=== PATIENT | female | born 1965 | race African-American/Black ===

== ENCOUNTER 2017-06-29 13:42 | Emergency (ER) | payer MEDICAID, OTHER ==
[~2017-06-29] VITALS: Ht 172.7 cm; Wt 66.0 kg
[2017-06-29 13:44] VITALS: BP 108/71
[2017-06-29] MEDS ORDERED: KETOROLAC 30 MG/1 ML ONE (14:29)
[2017-06-29] MEDS ORDERED: KETOROLAC 30 MG/1 ML IM ONE (14:30)
[2017-06-29 14:32] LABS: PATH.CAST-FLAG NOT PRESENT; SPERM-FLAG NOT PRESENT; SRC-FLAG NOT PRESENT; XTAL-FLAG NOT PRESENT; YLC-FLAG NOT PRESENT
== END 2017-06-29 15:57 | disposition home or self-care (01) ==
LOC: ED 15:25
DX: M54.5 Low back pain (principal); G89.29 Other chronic pain
CPT/HCPCS: 72110; 81001; 87086; 96372; 99285; J1885

== ENCOUNTER 2020-03-29 15:35 | Emergency (ER) | payer MEDICAID ==
[~2020-03-29] VITALS: Ht 172.7 cm; Wt 56.7 kg
[2020-03-29 15:38] VITALS: BP 102/60
--- NOTE | 2020-03-29 16:54 | NUR ---
AQUARIST: PT TO ROOM FROM LOBBY
--- NOTE | 2020-03-29 17:43 | NUR ---
Patient given discharge instructions and Rx, they have confirmed that they understand the instructions. Patient ambulatory with steady gait.
== END 2020-03-29 17:44 | disposition home or self-care (01) ==
LOC: ED 17:20
DX: K08.89 Other specified disorders of teeth and supporting structures (principal); G89.29 Other chronic pain; Z90.89 Acquired absence of other organs
CPT/HCPCS: 99283

== ENCOUNTER 2020-04-23 15:05 | Inpatient (IN) | payer MEDICAID ==
[~2020-04-23] VITALS: Ht 172.7 cm; Wt 52.5 kg
--- NOTE | 2020-04-23 15:21 | NUR ---
PT AMB TO BR WITH STEADY GAIT. URINE CUP GIVEN AT THIS TIME.
--- NOTE | 2020-04-23 15:34 | NUR ---
FIRST CONTACT WITH PT. PT CAME IN CO OF FEELING "TIRED ALL THE TIME". PT REPORTS SHE HAS HYPOTHYROIDISM. PT ALSO REPORTS FREQUENT URINATION. PT'S AOX4. RESPS EVEN AND UNLABORED. DENIES ANY PAIN. BP/SPO2 MONITORS IN PLACE. CALL LIGHT WITHIN REACH. PA AT BEDSIDE TO EVALUATE AT THIS TIME.
--- NOTE | 2020-04-23 15:38 | NUR ---
URINE COLLECTED AND UA SENT.
[2020-04-23 15:53] LABS: MICROSCOPIC NOT IND
--- NOTE | 2020-04-23 16:06 | NUR ---
EKG DONE AT BEDSIDE BY EMS.
[2020-04-23 16:08] LABS: MEAN CORPUSCULAR HEMOGLOBIN 29.2 pg (27.0-34.8); MEAN CORPUSCULAR HGB CONC 31.9 g/dL (32.4-35.8); MEAN CORPUSCULAR VOLUME 91.7 fL (80-100); MEAN PLATELET VOLUME 11.1 fL (7.4-10.4); PLATELET COUNT 185 x10^3/uL (130-400); RED BLOOD COUNT 4.45 x10^6/uL (3.82-5.3); RED CELL DISTRIBUTION WIDTH 13.1 % (9.6-15.2)
--- NOTE | 2020-04-23 16:08 | NUR ---
PT AMB TO BR WITH STEADY GAIT.
[2020-04-23 16:11] LABS: ALANINE AMINOTRANSFERASE 30 U/L (12-78); ALBUMIN 4.1 g/dL (3.4-5.0); ANION GAP 14 mmol/L (5-15); CHLORIDE 89 mmol/L (98-107); CREATININE 1.36 mg/dL (0.55-1.02)
[2020-04-23 16:20] LABS: ALKALINE PHOSPHATASE 343 U/L (45-117); BILIRUBIN,TOTAL 0.5 mg/dL (0.2-1.0); TOTAL PROTEIN 7.9 g/dL (6.4-8.2)
[2020-04-23] MEDS ORDERED: SODIUM CHLORIDE FLUSH 10ML SYR IVF ONE (16:30)
[2020-04-23] MEDS ORDERED: SODIUM CHLORIDE 0.9% 1,000ML IVBOLUS ONE (16:30)
[2020-04-23] MEDS ORDERED: METH5TAB6 PO (16:32)
[2020-04-23] MEDS ORDERED: OXYC-432 PO (16:32)
[2020-04-23] MEDS ORDERED: PREG75CA PO (16:33)
[2020-04-23] MEDS ORDERED: MELO15TA24 PO (16:33)
[2020-04-23] MEDS ORDERED: MONT10TA11 PO (16:33)
[2020-04-23 16:34] LABS: MD YES
[2020-04-23] MEDS ORDERED: VITAMIN B12 (16:34)
[2020-04-23 16:36] LABS: <RBC MORPHOLOGY> NORMAL; BASOS% (MANUAL) 1 % (0-1); LYMPH#(MANUAL) 1.71 x10^3/uL (1-3.4); LYMPHS% (MANUAL) 18 % (22-44); MONOS#(MANUAL) 0.29 x10^3/uL (0.3-2.7); MONOS% (MANUAL) 3 % (2-9); SEG#(MANUAL) 7.41 x10^3/uL (1.8-6.8); SEGS% (MANUAL) 78 % (42-75)
--- NOTE | 2020-04-23 16:36 | NUR ---
PIV EST ON R AC WITH NO COMPLICATIONS. NS INFUSING AT THIS TIME. PT TOLERATED WELL.
[2020-04-23 16:38] LABS: <PLATELET ESTIMATE> ADEQUATE
[2020-04-23 16:39] LABS: <PLT MORPHOLOGY> NORMAL PLT MORPH
[2020-04-23 16:41] LABS: FREE T4 (FREE THYROXINE) 1.98 ng/dL (0.76-1.46)
[2020-04-23 16:49] LABS: PH, VENOUS 7.356 pH (7.320-7.420)
--- NOTE | 2020-04-23 17:06 | NUR ---
pt amb to br with steady gait.
[2020-04-23 17:16] LABS: ACETONE, SERUM Large (80mg/dL) (Negative)
--- NOTE | 2020-04-23 17:48 | NUR ---
PT RESTING IN [facility]. PT'S AOX4. RESPS EVEN AND UNLABORED. ALL MONITORS IN PLACE. CALL LIGHT WITHIN REACH.
--- NOTE | 2020-04-23 18:25 | NUR ---
PT AMB TO BR WITH STEADY GAIT AT THIS TIME.
[2020-04-23] MEDS ORDERED: ENALAPRILAT 1.25 MG/ML, 2ML IVPush PRN (18:30)
[2020-04-23] MEDS ORDERED: DIPHENHYDRAMINE 25 MG CAPSULE PO PRN (18:30)
[2020-04-23] MEDS ORDERED: ONDANSETRON 2MG/ML, 2ML IVPush PRN (18:30)
[2020-04-23] MEDS ORDERED: ONDANSETRON ODT 4 MG PO PRN (18:30)
[2020-04-23] MEDS ORDERED: LABETALOL 5MG/ML, 20ML IVPush PRN (18:30)
[2020-04-23] MEDS ORDERED: DOCUSATE 100 MG CAPSULE PO PRN (18:30)
[2020-04-23] MEDS ORDERED: ACETAMINOPHEN 325 MG TABLET PO PRN (18:30)
[2020-04-23] MEDS ORDERED: DEXTROSE 4 GM TAB.CHEW PO PRN (19:00)
[2020-04-23] MEDS ORDERED: GLUCAGON 1 MG IM PRN (19:00)
[2020-04-23] MEDS ORDERED: DEXTROSE 50%, 50ML SYRINGE IVPush PRN (19:00)
--- NOTE | 2020-04-23 19:05 | NUR ---
asumed care of pt. pt here for weakness and has been found to have N/O DM. Iv fluids infusing. pt sitting up on gurney in no apparent distress. testing on cell phone. calm, and cooperative. no c/o at this time. pt to be admitted. awaiting admit orders. no family at bedside
--- NOTE | 2020-04-23 19:08 | NUR ---
REPORT GIVEN TO SHANITA GALEAS.
--- NOTE | 2020-04-23 19:20 | NUR ---
pt ambualted to BR without difficulty.
--- NOTE | 2020-04-23 20:19 | NUR ---
bed assignment recieved. report called to Brooks GALEAS. pt to have repeat FSBS upon arrival to inpatient unit per recieving ADAL.
--- NOTE | 2020-04-23 20:41 | NUR ---
pt transferred to floor
[2020-04-23] MEDS: LACTATED RINGERS 1,000 ML IV SCH ×2 (20:58→23:30)
[2020-04-23] MEDS: SODIUM CHLORIDE FLUSH 10ML SYR IVF SCH (20:58)
[2020-04-23] MEDS ORDERED: INSULIN GLARGINE 100 UNITS/ML, PEN SQ-INSULIN SCH (21:00)
[2020-04-23 21:59] LABS: ANION GAP 10 mmol/L (5-15); CALCIUM 9.3 mg/dL (8.5-10.1); CHLORIDE 105 mmol/L (98-107); CREATININE 0.73 mg/dL (0.55-1.02)
[2020-04-23] MEDS: MELOXICAM 15 MG TABLET PO SCH (22:10)
[2020-04-23] MEDS: FAMOTIDINE 20 MG TABLET PO SCH (22:10)
[2020-04-23] MEDS: PREGABALIN 75 MG CAPSULE PO SCH (22:10)
[2020-04-23] MEDS: INSULIN LISPRO 100 UNITS/ML, PEN SQ-INSULIN SCH (22:12)
[2020-04-24 01:12] VITALS: BP 132/86
[2020-04-24] MEDS: LACTATED RINGERS 1,000 ML IV SCH ×3 (04:30→17:25)
[2020-04-24] MEDS: INSULIN LISPRO 100 UNITS/ML, PEN SQ-INSULIN SCH ×4 (06:03→20:44)
[2020-04-24 06:42] VITALS: BP 114/74
[2020-04-24 06:50] LABS: BASOPHILS # (AUTO) 0.04 x10^3/uL (0-0.1); BASOPHILS % (AUTO) 1 % (0-1); EOSINOPHILS # (AUTO) 0.75 x10^3/uL (0-0.4); EOSINOPHILS % (AUTO) 10 % (1-7); LYMPHOCYTES % (AUTO) 45 % (22-44); MD NO; MEAN CORPUSCULAR HEMOGLOBIN 29.2 pg (27.0-34.8); MEAN CORPUSCULAR HGB CONC 32.3 g/dL (32.4-35.8); MEAN CORPUSCULAR VOLUME 90.4 fL (80-100); MEAN PLATELET VOLUME 10.7 fL (7.4-10.4); MONOCYTES # (AUTO) 0.52 x10^3/uL (0.2-0.8); MONOCYTES % (AUTO) 7 % (2-9); NEUTROPHILS # (AUTO) 2.81 x10^3/uL (1.8-6.8); NEUTROPHILS % (AUTO) 37 % (42-75); PLATELET COUNT 146 x10^3/uL (130-400); RED BLOOD COUNT 3.85 x10^6/uL (3.82-5.3); RED CELL DISTRIBUTION WIDTH 13.7 % (9.6-15.2)
[2020-04-24 06:53] LABS: ANION GAP 7 mmol/L (5-15); CALCIUM 9.4 mg/dL (8.5-10.1); CHLORIDE 106 mmol/L (98-107); CREATININE 0.57 mg/dL (0.55-1.02)
[2020-04-24] MEDS: FAMOTIDINE 20 MG TABLET PO SCH ×2 (08:28→20:46)
[2020-04-24] MEDS: MONTELUKAST 10 MG TABLET PO SCH (08:28)
[2020-04-24] MEDS: PREGABALIN 75 MG CAPSULE PO SCH ×2 (08:28→20:46)
[2020-04-24] MEDS: METHIMAZOLE 5 MG TAB PO SCH (08:28)
[2020-04-24] MEDS: SENNA/DOCUSATE TABLET PO SCH (08:31)
[2020-04-24] MEDS: SODIUM CHLORIDE FLUSH 10ML SYR IVF SCH ×2 (08:31→20:46)
[2020-04-24 11:34] LABS: ANION GAP 6 mmol/L (5-15); CALCIUM 8.8 mg/dL (8.5-10.1); CHLORIDE 106 mmol/L (98-107); CREATININE 0.54 mg/dL (0.55-1.02)
[2020-04-24] MEDS: OXYcodone/APAP 10/325MG TABLET PO PRN (11:46)
[2020-04-24 12:24] VITALS: BP 123/78
[2020-04-24 16:15] LABS: ANION GAP 5 mmol/L (5-15); CALCIUM 9.2 mg/dL (8.5-10.1); CHLORIDE 107 mmol/L (98-107); CREATININE 0.65 mg/dL (0.55-1.02)
[2020-04-24 19:44] VITALS: BP 144/93
[2020-04-24] MEDS: MELOXICAM 15 MG TABLET PO SCH (20:46)
[2020-04-24] MEDS ORDERED: INSULIN GLARGINE 100 UNITS/ML, PEN SQ-INSULIN SCH (21:00)
[2020-04-24 22:44] LABS: ANION GAP 7 mmol/L (5-15); CALCIUM 9.3 mg/dL (8.5-10.1); CHLORIDE 105 mmol/L (98-107); CREATININE 0.68 mg/dL (0.55-1.02)
[2020-04-25 01:48] VITALS: BP 137/86
[2020-04-25] MEDS: LACTATED RINGERS 1,000 ML IV SCH ×3 (03:37→22:03)
[2020-04-25 06:17] LABS: CHLORIDE 110 mmol/L (98-107)
[2020-04-25 06:22] VITALS: BP 104/69
[2020-04-25 06:25] LABS: ANION GAP 3 mmol/L (5-15); BASOPHILS # (AUTO) 0.04 x10^3/uL (0-0.1); BASOPHILS % (AUTO) 1 % (0-1); CALCIUM 9.4 mg/dL (8.5-10.1); EOSINOPHILS # (AUTO) 0.63 x10^3/uL (0-0.4); EOSINOPHILS % (AUTO) 10 % (1-7); LYMPHOCYTES # (AUTO) 2.37 x10^3/uL (1-3.4); LYMPHOCYTES % (AUTO) 36 % (22-44); MD NO; MEAN CORPUSCULAR HEMOGLOBIN 29.8 pg (27.0-34.8); MEAN CORPUSCULAR HGB CONC 32.8 g/dL (32.4-35.8); MEAN CORPUSCULAR VOLUME 90.8 fL (80-100); MEAN PLATELET VOLUME 10.7 fL (7.4-10.4); MONOCYTES # (AUTO) 0.48 x10^3/uL (0.2-0.8); MONOCYTES % (AUTO) 7 % (2-9); NEUTROPHILS # (AUTO) 2.99 x10^3/uL (1.8-6.8); NEUTROPHILS % (AUTO) 46 % (42-75); PLATELET COUNT 138 x10^3/uL (130-400); RED BLOOD COUNT 3.99 x10^6/uL (3.82-5.3); RED CELL DISTRIBUTION WIDTH 13.5 % (9.6-15.2)
[2020-04-25] MEDS: PREGABALIN 75 MG CAPSULE PO SCH ×2 (08:08→20:38)
[2020-04-25] MEDS: MONTELUKAST 10 MG TABLET PO SCH (08:08)
[2020-04-25] MEDS: CYANOCOBALAMIN 1,000 MCG TABLET PO SCH (08:08)
[2020-04-25] MEDS: FAMOTIDINE 20 MG TABLET PO SCH ×2 (08:08→20:38)
[2020-04-25] MEDS: METHIMAZOLE 5 MG TAB PO SCH (08:09)
[2020-04-25] MEDS: INSULIN LISPRO 100 UNITS/ML, PEN SQ-INSULIN SCH ×4 (08:09→20:37)
[2020-04-25] MEDS: SODIUM CHLORIDE FLUSH 10ML SYR IVF SCH ×2 (09:00→20:39)
[2020-04-25] MEDS: SENNA/DOCUSATE TABLET PO SCH ×2 (09:00→12:51)
[2020-04-25 12:24] VITALS: BP 126/86
[2020-04-25 15:51] LABS: ANION GAP 5 mmol/L (5-15); CALCIUM 9.2 mg/dL (8.5-10.1); CHLORIDE 109 mmol/L (98-107); CREATININE 0.59 mg/dL (0.55-1.02)
[2020-04-25 19:45] VITALS: BP 145/87
[2020-04-25] MEDS: MELOXICAM 15 MG TABLET PO SCH (20:38)
[2020-04-25] MEDS: INSULIN GLARGINE 100 UNITS/ML, PEN SQ-INSULIN SCH (20:38)
[2020-04-25 23:44] LABS: ANION GAP 5 mmol/L (5-15); CALCIUM 9.5 mg/dL (8.5-10.1); CHLORIDE 111 mmol/L (98-107); CREATININE 0.62 mg/dL (0.55-1.02)
[2020-04-26 02:25] VITALS: BP 110/84
[2020-04-26 06:41] VITALS: BP 107/72
[2020-04-26] MEDS: INSULIN LISPRO 100 UNITS/ML, PEN SQ-INSULIN SCH ×4 (07:00→21:04)
[2020-04-26] MEDS: LACTATED RINGERS 1,000 ML IV SCH ×2 (07:25→16:33)
[2020-04-26] MEDS: PREGABALIN 75 MG CAPSULE PO SCH ×2 (07:43→21:02)
[2020-04-26] MEDS: METHIMAZOLE 5 MG TAB PO SCH (07:43)
[2020-04-26] MEDS: FAMOTIDINE 20 MG TABLET PO SCH ×2 (07:43→21:02)
[2020-04-26] MEDS: MONTELUKAST 10 MG TABLET PO SCH (07:43)
[2020-04-26] MEDS: CYANOCOBALAMIN 1,000 MCG TABLET PO SCH (07:44)
[2020-04-26] MEDS: SODIUM CHLORIDE FLUSH 10ML SYR IVF SCH ×2 (07:45→21:02)
[2020-04-26] MEDS ORDERED: INSULIN GLARGINE 100 UNITS/ML, PEN SQ-INSULIN SCH (09:00)
[2020-04-26 13:31] VITALS: BP 118/80
[2020-04-26 20:00] VITALS: BP 123/79
[2020-04-26] MEDS: MELOXICAM 15 MG TABLET PO SCH (21:02)
[2020-04-26] MEDS: INSULIN GLARGINE 100 UNITS/ML, PEN SQ-INSULIN SCH (21:04)
[2020-04-27 02:00] VITALS: BP 123/87
[2020-04-27] MEDS: OXYcodone/APAP 10/325MG TABLET PO PRN (03:55)
[2020-04-27] MEDS: INSULIN LISPRO 100 UNITS/ML, PEN SQ-INSULIN SCH ×2 (07:00→11:06)
[2020-04-27 07:23] VITALS: BP 98/63
[2020-04-27] MEDS: PREGABALIN 75 MG CAPSULE PO SCH (08:23)
[2020-04-27] MEDS: MONTELUKAST 10 MG TABLET PO SCH (08:23)
[2020-04-27] MEDS: SENNA/DOCUSATE TABLET PO SCH (08:23)
[2020-04-27] MEDS: FAMOTIDINE 20 MG TABLET PO SCH (08:23)
[2020-04-27] MEDS: METHIMAZOLE 5 MG TAB PO SCH (08:23)
[2020-04-27] MEDS: LACTATED RINGERS 1,000 ML IV SCH (08:23)
[2020-04-27] MEDS: SODIUM CHLORIDE FLUSH 10ML SYR IVF SCH (08:24)
[2020-04-27] MEDS: CYANOCOBALAMIN 1,000 MCG TABLET PO SCH (08:24)
[2020-04-27] MEDS ORDERED: INSULIN GLARGINE 100 UNITS/ML, PEN SQ-INSULIN SCH (09:00)
[2020-04-27 13:27] VITALS: BP 144/78
[2020-04-27] MEDS ORDERED: METH5TAB6 PO (13:44)
[2020-04-27] MEDS ORDERED: INSU100I11 SQ-INSULIN (13:44)
[2020-04-27] MEDS ORDERED: INSU100I13 SQ-INSULIN ×2 (13:44)
== END 2020-04-27 16:40 | disposition home or self-care (01) | DRG 638 ==
LOC: SUATTDRO 18:22 → ED 18:25 → EDIP 18:33 → ED 18:57 → 4EST 20:38 → DCLOUNGE 04-27 15:59
PROVIDERS: ADMIT Hospitalist; ATTEND Internal Medicine
DX: E11.00 Type 2 diabetes mellitus with hyperosmolarity without nonketotic hyperglycemic-hyperosmolar coma (NKHHC) (principal); E87.1 Hypo-osmolality and hyponatremia; E05.90 Thyrotoxicosis, unspecified without thyrotoxic crisis or storm; E03.9 Hypothyroidism, unspecified; E53.8 Deficiency of other specified B group vitamins; M54.9 Dorsalgia, unspecified; G89.29 Other chronic pain; Z98.1 Arthrodesis status; Z90.89 Acquired absence of other organs
CPT/HCPCS: 36415; 80048; 80053; 81003; 82010; 82803; 82962; 83036; 83735; 83930; 84100; 84439; 84443; 84481; 85025; 93005; 96360; 96361; 99285; G0378; J1815; J7030; J7120